=== PATIENT | male | born 1995 | race Caucasian/White ===

== ENCOUNTER 2017-11-04 09:42 | Outpatient (RCR) | payer OTHER | END 2017-11-11 | LOC: M OT 09:42 → M PT 11-07 09:40 | DX: Z51.89 Encounter for other specified aftercare (principal); F07.81 Postconcussional syndrome | CPT/HCPCS: 97010 ==

== ENCOUNTER 2017-11-15 10:14 | Outpatient (RCR) | payer OTHER | END 2017-12-11 | LOC: M PT 10:14 | DX: Z47.89 Encounter for other orthopedic aftercare (principal); F07.81 Postconcussional syndrome | CPT/HCPCS: 97010 ==

== ENCOUNTER 2020-05-18 22:35 | Emergency (ER) | payer OTHER, SELFPAY ==
[~2020-05-18] VITALS: Ht 175.3 cm; Wt 95.0 kg
--- NOTE | 2020-05-19 00:01 | REPVR ---
PROCEDURE INFORMATION: Exam: XR Left Shoulder Exam date and time: 05/18/20 (10:51pm) Age: 24 years old Clinical indication: Left shoulder injury, pain TECHNIQUE: Imaging protocol: XR Left shoulder Views: 2 or more views COMPARISON: No relevant prior studies available FINDINGS: No acute fracture nor dislocation. The acromio-humeral distance measures 11-12 mm (at the upper limits of normal). The left clavicle and and left scapula appear intact. The left lung appears clear. IMPRESSION: No acute fracture nor dislocation. The acromio-humeral distance is at the upper limits of normal. This may indicate a mild inferior subluxation at the left shoulder (perhaps a joint effusion is present, eg). Electronically signed by: Estephania Carrion On 05/19/2020 00:01:38 AM
--- NOTE | 2020-05-19 00:09 | REPVR ---
PROCEDURE INFORMATION: Exam: XR Left Humerus Exam date and time: 05/18/20 (10:50pm) Age: 24 years old Clinical indication: Left upper arm pain TECHNIQUE: Imaging protocol: XR Left humerus Views: 2 or more views COMPARISON: No relevant prior studies available. FINDINGS: Bones/joints: Unremarkable. No acute fracture nor dislocation. Soft tissues: Unremarkable. IMPRESSION: No acute findings. Electronically signed by: Estephania Carrion On 05/19/2020 00:09:41 AM
[2020-05-19] MEDS ORDERED: OXYCODONE/APAP 5MG/325MG(BULK FOR ED) 1 TABLET PO ONE (00:20)
[2020-05-19] MEDS ORDERED: IBUP80TA PO (00:24)
[2020-05-19 00:50] VITALS: BP 140/75
== END 2020-05-19 01:18 | disposition home or self-care (01) ==
LOC: M ED 22:35
DX: M25.412 Effusion, left shoulder (principal); S43.52XA Sprain of left acromioclavicular joint, initial encounter; W01.0XXA Fall on same level from slipping, tripping and stumbling without subsequent striking against object, initial encounter; Y92.330 Ice skating rink (indoor) (outdoor) as the place of occurrence of the external cause; Y93.22 Activity, ice hockey

== ENCOUNTER → 2020-05-19 | Outpatient (CLI) | payer OTHER ==
[~2020-05-19] MED LIST: IBUP80TA PO
--- NOTE | 2020-05-19 13:39 | REP ---
INDICATION: LEFT SHOULDER PAIN. COMPARISON: 05/18/2020 TECHNIQUE: Left axillary view FINDINGS: No evidence for acute fracture or dislocation. IMPRESSION: No evidence for acute fracture or dislocation. <Electronically signed by Talat Fuentes > 05/19/20 [id number]
== END ==
LOC: M SOG 16:39
PROVIDERS: ATTEND Orthopaedic Surgery Sports Medicine
DX: M25.312 Other instability, left shoulder (principal)